=== PATIENT | female | born 1990 | race Caucasian/White ===

== ENCOUNTER 2022-04-14 06:15 | Inpatient (IN) | payer MEDICAID ==
[~2022-04-14] VITALS: Ht 162.6 cm; Wt 88.9 kg
[2022-04-14] MEDS ORDERED: NALOXONE HCL 0.4 MG/ML 1ML VIAL IM PRN (06:45)
[2022-04-14] MEDS ORDERED: MISOPROSTOL 100MCG TABLET VG NR (06:45)
[2022-04-14] MEDS: LACTATED RINGERS 1,000 ML IV SCH ×2 (07:17→07:36)
[2022-04-14] MEDS ORDERED: MORPHINE SULFATE/PF 1MG/ML 10ML AMP ONE (07:18)
[2022-04-14] MEDS ORDERED: CEFAZOLIN SODIUM 1000MG/VIAL ONE (07:28)
[2022-04-14] MEDS ORDERED: DEXAMETHASONE 4MG/ML 1ML VIAL ONE (07:28)
[2022-04-14] MEDS ORDERED: ONDANSETRON HCL 4MG/2ML INJ ONE (07:28)
[2022-04-14] MEDS ORDERED: OXYTOCIN 10 UNITS/ML 1ML ONE (07:29)
[2022-04-14] MEDS ORDERED: EPHEDRINE SULFATE 50MG/ML VIAL ONE (07:30)
[2022-04-14] MEDS ORDERED: PHENYLEPHRINE HCL 10 MG/ML 1ML (IV VIAL) IV ONE (07:31)
[2022-04-14 07:51] LABS: CLARITY URINE CLEAR (CLEAR); COLOR URINE DARK YELLOW (YELLOW); KETONES URINE TRACE (NEGATIVE); LEUKOCYTE ESTERASE URINE NEGATIVE (NEGATIVE); NITRITE URINE NEGATIVE (NEGATIVE); OCCULT BLOOD URINE NEGATIVE (NEGATIVE); PH URINE 6.5 (4.5-8.0); PROTEIN URINE TRACE (NEGATIVE); SPECIFIC GRAVITY URINE 1.022 (1.005-1.030); UROBILINOGEN URINE 0.2 E.U./dL (0.2-1.0)
[2022-04-14 07:52] LABS: BASOPHILS % 1.3 % (0.0-2.0); EOSINOPHILS % 1.6 % (0.0-5.0); HEMATOCRIT. 33.1 % (36.0-48.0); HEMOGLOBIN. 11.1 g/dL (12.0-16.0); MEAN CORPUSCULAR HEMOGLOBIN 27.9 pg (28.0-32.0); MEAN CORPUSCULAR VOLUME 83.3 fL (81.0-99.0); MEAN PLATELET VOLUME 10.3 fl (7.4-10.4); MONOCYTES % 10.9 % (2.0-8.0); NEUTROPHILS % 66.2 % (40.0-76.0); PLATELET 225 x1000/uL (130-400); RED BLOOD CELL COUNT 3.98 mill/uL (4.2-5.4); RED CELL DISTRIBUTION WIDTH 15.3 % (11.6-14.6)
[2022-04-14] MEDS ORDERED: FENTANYL CITRATE/PF 50MCG/ML 2ML VIAL IV PRN (08:00)
[2022-04-14] MEDS ORDERED: NALOXONE HCL 0.4 MG/ML 1ML VIAL IV PRN ×2 (08:00)
[2022-04-14] MEDS ORDERED: MORPHINE SULFATE 4 MG/ML CPJ (NOT FOR IM USE) IV PRN (08:00)
[2022-04-14 08:01] LABS: *AMPHETAMINES SCREEN URINE NEGATIVE (NEGATIVE); *BARBITURATES SCREEN URINE NEGATIVE (NEGATIVE); *BENZODIAZEPINES SCREEN URINE NEGATIVE (NEGATIVE); *COCAINE SCREEN URINE NEGATIVE (NEGATIVE); CANNABINOID URINE SCREEN NEGATIVE (NEGATIVE); METHADONE URINE SCREEN NEGATIVE (NEGATIVE); OPIATES URINE SCREEN NEGATIVE (NEGATIVE); PHENCYCLIDINE URINE SCREEN NEGATIVE (NEGATIVE)
[2022-04-14 08:01] LABS: PARTIAL THROMBOPLASTIN TIME 27.9 sec (23.4-31.0); PROTHROMBIN TIME 10.3 sec (9.6-11.0)
[2022-04-14 08:26] LABS: HEPATITIS B SURFACE ANTIGEN NEGATIVE
[2022-04-14] MEDS ORDERED: KETOROLAC 60MG/2ML VIAL IM ONE (08:46)
[2022-04-14] MEDS ORDERED: KETOROLAC 30MG/ML VIAL IV PRN (09:00)
[2022-04-14] MEDS ORDERED: BISACODYL 10MG SUPP PR PRN (09:30)
[2022-04-14] MEDS ORDERED: IBUPROFEN 400MG TABLET PO PRN (09:30)
[2022-04-14] MEDS ORDERED: HYDROMORPHONE HCL/PF 2MG/ML CPJ IM PRN (09:30)
[2022-04-14 11:15] VITALS: BP 122/66
[2022-04-14 11:45] VITALS: BP 121/67
[2022-04-14 12:30] VITALS: BP 129/70
[2022-04-14] MEDS: IBUPROFEN 800MG TABLET PO PRN ×2 (13:39→20:40)
[2022-04-14] MEDS: OXYTOCIN 30 UNITS/500ML NS PMX 500 ML IV SCH ×2 (15:38→20:40)
[2022-04-14 15:49] VITALS: BP 117/64
[2022-04-14] MEDS: KETOROLAC 30MG/ML VIAL IV PRN (16:26)
[2022-04-14 20:00] VITALS: BP 132/70
[2022-04-15] VITALS: BP 105/58
[2022-04-15] MEDS: KETOROLAC 30MG/ML VIAL IV PRN (00:56)
[2022-04-15] MEDS: LACTATED RINGERS 1,000 ML IV SCH (01:03)
[2022-04-15 04:00] VITALS: BP 113/65
[2022-04-15 07:46] LABS: BASOPHILS % 1.2 % (0.0-2.0); EOSINOPHILS % 1.6 % (0.0-5.0); HEMATOCRIT. 28.3 % (36.0-48.0); HEMOGLOBIN. 9.5 g/dL (12.0-16.0); LYMPHOCYTES % 24.2 % (20.0-50.0); MEAN CORPUSCULAR VOLUME 83.8 fL (81.0-99.0); MEAN PLATELET VOLUME 9.6 fl (7.4-10.4); MONOCYTES % 11.7 % (2.0-8.0); NEUTROPHILS % 61.3 % (40.0-76.0); PLATELET 196 x1000/uL (130-400); RED BLOOD CELL COUNT 3.38 mill/uL (4.2-5.4); RED CELL DISTRIBUTION WIDTH 15.7 % (11.6-14.6)
[2022-04-15] MEDS: FERROUS SULFATE 325MG TABLET PO SCH ×2 (07:54→13:13)
[2022-04-15 08:00] VITALS: BP 125/75
[2022-04-15] MEDS: PRENATAL VIT/FE FUMARATE/FA TABLET PO SCH (09:00)
[2022-04-15] MEDS: IBUPROFEN 800MG TABLET PO PRN ×2 (12:09→20:27)
[2022-04-15 15:30] VITALS: BP 124/63
[2022-04-15] MEDS: GUAIFENESIN-DM 200MG-20MG/10ML UDC PO PRN ×2 (15:49→20:28)
[2022-04-15] MEDS ORDERED: NALOXONE HCL 0.4MG/ML VIAL IV PRN (16:00)
[2022-04-15 20:00] VITALS: BP 129/70
[2022-04-15] MEDS ORDERED: TETANUS, DIPHTHERIA, PERTUSSIS VAC/PF 0.5ML (>10YR OLD) IM ONE (21:00)
[2022-04-16] MEDS: GUAIFENESIN-DM 200MG-20MG/10ML UDC PO PRN ×5 (00:27→20:09)
[2022-04-16] MEDS: IBUPROFEN 800MG TABLET PO PRN ×3 (02:22→20:09)
[2022-04-16 04:00] VITALS: BP 129/58
[2022-04-16] MEDS: FERROUS SULFATE 325MG TABLET PO SCH ×2 (07:30→12:30)
[2022-04-16 07:33] VITALS: BP 131/74
[2022-04-16 16:00] VITALS: BP 127/61
[2022-04-16 20:00] VITALS: BP 125/73
[2022-04-17 02:15] VITALS: BP 121/78
[2022-04-17] MEDS: IBUPROFEN 800MG TABLET PO PRN (02:18)
[2022-04-17] MEDS: GUAIFENESIN-DM 200MG-20MG/10ML UDC PO PRN (02:18)
[2022-04-17] MEDS ORDERED: IBUP-2030 PO (02:31)
[2022-04-17] MEDS ORDERED: MULT-1116 MT (02:31)
[2022-04-17] MEDS ORDERED: FERR-63 PO (02:31)
[2022-04-17 08:00] VITALS: BP 123/78
[2022-04-17] MEDS: PRENATAL VIT/FE FUMARATE/FA TABLET PO SCH (08:44)
[2022-04-17] MEDS: FERROUS SULFATE 325MG TABLET PO SCH (08:44)
== END 2022-04-17 11:55 | disposition home or self-care (01) | DRG 540 ==
LOC: OBSVTOIN 06:15 → 8 EST LDRP 06:15 → 8EST 11:05
PROVIDERS: ADMIT Obstetrics & Gynecology; ATTEND Obstetrics & Gynecology
PROC: 10D00Z1 Extraction of Products of Conception, Low, Open Approach (ICD-10-PCS; principal; 2022-04-14)
DX: O69.1XX0 Labor and delivery complicated by cord around neck, with compression, not applicable or unspecified (principal); O34.211 Maternal care for low transverse scar from previous cesarean delivery; Z37.0 Single live birth; Z3A.39 39 weeks gestation of pregnancy; Z83.3 Family history of diabetes mellitus; Z20.822 Contact with and (suspected) exposure to COVID-19
CPT/HCPCS: 36415; 80305; 81003; 85025; 86592; 86703; 86762; 86850; 86900; 87340; 87426; 88307; 90715; G0378; J0690; J1100; J1885; J2274; J2370; J2405; J3490; A4315; J2590